=== PATIENT | male | born 2000 | race African-American/Black ===

== ENCOUNTER 2023-04-02 21:01 | Emergency (ER) | payer OTHER, SELFPAY ==
[2023-04-02 21:09] VITALS: BP 138/83; PULSE 70; RESP 18; TEMP 36.8; O2SAT 99; BMI 22.8
--- NOTE | 2023-04-02 21:17 | DI.CT.S_ITS ---
PROCEDURE: CT SOFT TISSUE NECK W CON INDICATIONS: pain, swelling, neck, no injury TECHNIQUE: After the administration of intravenous contrast, 3.0 mm axial sections acquired from the sella to the aortic arch. Additional oblique axial 3.0 mm sections acquired through the pharynx. 3 mm thick coronal and sagittal reformats were generated. For radiation dose reduction, the following was used: automated exposure control. COMPARISON: None. FINDINGS: Image quality: Excellent. Lymph nodes: There are bilateral prominent cervical lymph nodes, right greater than left. These include enlarged right level 2 node measuring up to 1.7 cm in short axis on series 2, image 42. There is a prominent left level 2 node measuring up to 0.9 cm on the same image. There is also an enlarged career services representative right V a node measuring up to 1.0 cm on series 2, image 47. Vessels: Visualized vasculature appears patent. Neck spaces: The oropharynx, nasopharynx, and pharynx demonstrate no mucosal lesions. The vocal cords, false vocal cords, pyriform sinuses, epiglottis, vallecula, and tongue base all appear normal. Extramucosal spaces appear unremarkable. Glands: The parotid and submandibular glands appear normal. Thyroid gland demonstrates no discrete nodules. Miscellaneous: Visualized brain and orbits appear normal. Lung apices appear clear. Superficial soft tissues appear normal. Bones: No suspicious bony lesions. Visualized sinuses and mastoids appear unremarkable. IMPRESSION: 1. Mildly enlarged right cervical lymph nodes as described are nonspecific but likely reactive secondary to an infectious or inflammatory process. A neoplastic etiology such as lymphoma cannot be fully excluded but is considered less likely. Recommend clinical follow-up to demonstrate stability or resolution. Dictated by: Deven Souza M.D. on 04/02/2023 at 22:44 Approved by: Deven Souza M.D. on 04/02/2023 at 22:54
[2023-04-02 21:46] LABS: Add Manual Diff / Slide Review NO; Basophils Absolute Auto 100 /uL (0-100); Basophils Percent Auto 0.7 % (0-2); Eosinophils Absolute Auto 100 /uL (0-450); Eosinophils Percent Auto 1.6 % (2-4); Hematocrit 40.6 % (41-53); Hemoglobin 13.7 g/dL (13.5-17.5); Lymphocytes Absolute Auto 2200 /uL (1100-4500); Lymphocytes Percent Auto 25.9 % (25-40); Mean Corpuscular HGB Conc 33.9 % (30-36); Mean Corpuscular Hemoglobin 29.3 PG (26-34); Mean Corpuscular Volume 86.5 fL (80-100); Monocytes Absolute Auto 700 /uL (0-900); Monocytes Percent Auto 8.2 % (3-14); Neutrophils Absolute Auto 5400 /uL (1500-7000); Neutrophils Percent Auto 63.6 % (50-75); Platelet Count 252 X10^3/uL (150-400); Red Blood Cell Count 4.69 X10^6/uL (4.5-5.9); Red Cell Distribution Width 13.2 % (11.6-14.8); Strep Grp A by PCR Rapid Positive (Negative); White Blood Cell Count 8.5 X10^3/uL (4.5-11.0)
[2023-04-02 21:47] LABS: BUN Creatinine Ratio 15.2 (6-22); Blood Urea Nitrogen 19 mg/dL (9-20); Calcium 9.3 mg/dL (8.4-10.2); Carbon Dioxide 29 mmol/L (22-32); Chloride 101 mmol/L (98-107); Estimated Glomerular Filt Rate > 60 mL/min (>60); Glucose 95 mg/dL (70-100); HEMOLYSIS 24 (0-50); Potassium 3.8 mmol/L (3.4-5.1); Sodium 137 mmol/L (137-145)
[2023-04-02] MEDS: dexAMETHasone 20 MG in SODIUM CHLORIDE 0.9% 50 ML 208 MG IV (22:02)
[2023-04-02] MEDS: KETOROLAC 30 MG/ML VIAL 15 MG IV (22:03)
[2023-04-02] MEDS: PENICILLIN G BENZATHINE 1,200,000 UNIT/2 ML SYRINGE 1200000 UNIT IM (22:03)
[2023-04-02 23:08] VITALS: BP 119/75; PULSE 60; RESP 16; O2SAT 100
--- NOTE | 2023-04-03 01:41 | ED_ITS ---
HPI - Neck Pain/Injury General Chief Complaint: Neck Pain/Injury Stated Complaint: neck pain, lump on neck Time Seen by Provider: 04/02/23 21:17 Mode of arrival: Ambulatory History of Present Illness HPI Narrative: 22-year-old male smoker with noncontributory medical history presents with a chief complaint of swelling on the right side of his neck that he is noticed over the course of the day. He denies any fever or chills and has no difficulty swallowing or breathing. He is had no runny nose or cough but maybe a bit of a sore throat. He has had no nausea or vomiting denies any shortness of breath, fatigue or weight loss Related Data Allergies Allergy/AdvReac Type Severity Reaction Status Date / Time No Known Drug Allergies Allergy Verified 04/02/23 21:09 Review of Systems Review of Systems Narrative: GENERAL: See HPI HEENT: See HPI RESPIRATORY: Denies dyspnea, cough, wheezing, hemoptysis, sputum. CARDIOVASCULAR: Denies chest pain, palpitations, orthopnea, edema, GASTROINTESTINAL: Denies nausea, vomiting, abdominal pain, diarrhea, constipation, melena. : Denies dysuria, frequency, incontinence, hematuria, urinary retention. MUSCULOSKELETAL: denies weakness, joint pain, or bony pain SKIN: Denies rash, skin lesions, or other NEUROLOGIC: Denies weakness, headache, numbness, change in speech, confusion, seizures, incoordination. PSYCHIATRIC: No concerning psychosocial issues. 12 point review of systems is negative except for those stated above Patient History Social History Smoking Status: Current every day smoker Smoking Status: Current every day smoker tobacco type: vaping alcohol intake frequency: holidays/special occasions only Substance Use Type: does not use Exam Narrative Exam Narrative: GENERAL: [22] year old patient appears stated age. Well-developed patient, in mild distress. HEAD: Atraumatic. Normocephalic. EYES: Pupils equal round and reactive. Extraocular motions intact. No scleral icterus. No injection or drainage. ENT: Nose without bleeding, purulent drainage. Minimal posterior pharyngeal swelling and erythema, no obvious uvular pointing. NECK: Large, minimally tender right anterior cervical chain lymphadenopathy without overlying erythema, fluctuance, no meningeal sign CARDIOVASCULAR: Regular rate and rhythm without murmurs, gallops, or rubs. RESPIRATORY: Clear to auscultation. Breath sounds equal bilaterally. No wheezes, rales, or rhonchi. GASTROINTESTINAL: Abdomen soft, non-tender, nondistended. EXTREMITIES: No edema or joint tenderness. BACK: Nontender without deformity or crepitance. No flank tenderness. NEURO: AOx3. SKIN: No rash or erythema of visible areas Initial Vital Signs Initial Vital Signs: Vital Signs Temperature 98.2 F 04/02/23 21:09 Pulse Rate 70 04/02/23 21:09 Respiratory Rate 18 04/02/23 21:09 Blood Pressure 138/83 04/02/23 21:09 Pulse Oximetry 99 04/02/23 21:09 Oxygen Delivery Method Room Air 04/02/23 21:09 Course Orders Ordered: ED Orders 04/02/23 21:17 CT soft tissue neck w con Stat 04/02/23 21:24 Basic Metabolic Panel Stat Complete Blood Count AUTO DIFF Stat Strep Grp A by PCR Rapid Stat 04/02/23 21:29 Throat Culture Stat Discontinued Medications Dexamethasone 20 mg/ Sodium (Chloride) 52 mls @ 208 mls/hr IV NOW ONE Stop: 04/02/23 21:52 Last Infusion: 04/02/23 22:32 Dose: 0 mls/hr Documented By: Admin: 04/02/23 22:02 Dose: 208 mls/hr Documented By: GABRIELE Ketorolac Tromethamine (Ketorolac 30 Mg/Ml Vial) 15 mg IV NOW ONE Stop: 04/02/23 21:52 Last Admin: 04/02/23 22:03 Dose: 15 mg Documented By: GABRIELE Penicillin G Benzathine (Penicillin G Benzathine 1,200,000 Unit/2 Ml Syringe) 1,200,000 unit IM NOW ONE Stop: 04/02/23 21:52 Last Admin: 04/02/23 22:03 Dose: 1,200,000 unit Documented By: GABRIELE Vital Signs Vital signs: Vital Signs - 8 hr 04/02/23 21:09 04/02/23 23:08 Temperature 98.2 F Pulse Rate 70 60 Respiratory Rate 18 16 Blood Pressure 138/83 119/75 Pulse Oximetry 99 100 Oxygen Delivery Method Room Air Room Air MDM - Neck Pain/Injury Lab Data 04/02/23 21:24 04/02/23 21:24 Labs: Lab Results 04/02/23 04/02/2304/02/23 Range/Units 21:24 21:24 21:24 WBC 8.5 (4.5-11.0) X10^3/uL RBC 4.69 (4.5-5.9) X10^6/uL Hgb 13.7 (13.5-17.5) g/dL Hct 40.6 L (41-53) % MCV 86.5 (80-100) fL MCH 29.3 (26-34) PG MCHC 33.9 (30-36) % RDW 13.2 (11.6-14.8) % Plt Count 252 (150-400) X10^3/uL Neut % (Auto) 63.6 (50-75) % Lymph % (Auto) 25.9 (25-40) % [place] % (Auto) 8.2 (3-14) % Eos % (Auto) 1.6 L (2-4) % Baso % (Auto) 0.7 (0-2) % Neut # (Auto) 5400 (7377-1095) /uL Lymph # (Auto) 2200 (5493-6234) /uL [place] # (Auto) 700 (0-900) /uL Eos # (Auto) 100 (0-450) /uL Baso # (Auto) 100 (0-100) /uL Sodium 137 (137-145) mmol/L Potassium 3.8 (3.4-5.1) mmol/L Chloride 101 (98-107) mmol/L Carbon Dioxide 29 (22-32) mmol/L BUN 19 (9-20) mg/dL Creatinine 1.25 (0.66-1.25) mg/dL Estimated GFR > 60 (>60) mL/min BUN/Creatinine Ratio 15.2 (6-22) Glucose 95 (70-100) mg/dL Calcium 9.3 (8.4-10.2) mg/dL Group A Strep (PCR) Positive H (Negative) MDM Narrative Medical decision making narrative: [22] year old patient presents with large bulky left anterior neck swelling Multiple etiologies for patient's symptoms considered including, but not limited to: [Strep versus abscess versus other viral etiology versus lymphoma versus other] No other charts available Primary Historian: patient Labs reviewed and interpreted by myself: Rapid strep is positive Imaging reviewed: CT of the soft tissue of the neck ordered given such impressive unilateral swelling, thankfully no abscess or airspace involvement noted Patient's symptoms improved over duration of stay with above-stated therapies. Patient given penicillin shot, Decadron and Toradol, feeling better over the course of the visit. No further workup or treatment needed at this time Findings and discharge diagnosis discussed with patient/family followed by verbalization of understanding Return precautions discussed with patient/family whom verbalize understanding of diagnosis and plan Discharge Plan Departure Patient Disposition: Home Clinical Impression: Strep pharyngitis Instructions: DI for Strep Throat Activity Restrictions/Additional Instructions: *You have been diagnosed with [strep throat with associated swollen lymph nodes] *What to do: *Please continue to take your regular medications as directed. *Please follow up with your primary care provider in 2-3 days, call for an appointment. Let them know you were seen in the Emergency Department and that we ask that you be seen in follow up. We will electronically transmit a record of today's note if your PCP is in our system *If you do not have a primary care provider please contact the [facility] Resource line at [phone]. They will ask some questions about your medical history and help get you set up with a doctor in the community. *Return to Emergency Department if you should have any new, worsening or concern ing symptoms, such as [fever greater than 101 F, shaking chills, worsening pain, persistent vomiting or other bothersome symptoms] Referrals: Emigdio Schaffer [Primary Care Provider] - Stand Alone Forms: Patient Portal/API
== END 2023-04-02 23:21 | disposition home or self-care (01) ==
PROVIDERS: Emergency Provider Emergency Medicine
DX: J02.0 Streptococcal pharyngitis (principal); F17.200 Nicotine dependence, unspecified, uncomplicated
CPT/HCPCS: 36415; 70491; 80048; 85025; 87070; 87651; 96365; 96372; 96375; 99284; J0561; J1100; J1885; Q9967

== ENCOUNTER 2024-08-02 14:22 | Emergency (ER) | payer OTHER, SELFPAY ==
[2024-08-02 14:27] VITALS: BP 120/78; PULSE 67; RESP 16; TEMP 36.5; O2SAT 100; BMI 22.4
--- NOTE | 2024-08-02 14:31 | DI.RAD.S_ITS ---
PROCEDURE: XR FINGER LT MIN 2V INDICATIONS: unable to straigten finger post catching football TECHNIQUE: AP hand, 2 views of the 3rd finger(s) acquired. COMPARISON: None. FINDINGS: Bones: No fractures or dislocations. No suspicious bony lesions. Flexion of the 3rd DIP joint. Soft tissues: No suspicious soft tissue calcifications. IMPRESSION: No acute bony abnormality. Flexion of the 3rd DIP joint, suggestive extensor tendon injury. Dictated by: Javier Connolly M.D. on 08/02/2024 at 15:12 Approved by: Javier Connolly M.D. on 08/02/2024 at 15:13
== END 2024-08-02 16:05 | disposition left against medical advice (07) ==
PROVIDERS: Emergency Provider Emergency Medicine
DX: S69.92XA Unspecified injury of left wrist, hand and finger(s), initial encounter (principal); W21.01XA Struck by football, initial encounter
CPT/HCPCS: 73140; 99281